=== PATIENT | male | born 1945 | race Caucasian/White ===

== ENCOUNTER 2021-04-27 01:33 | Emergency (ER) | payer OTHER ==
[~2021-04-27] VITALS: Ht 190.5 cm; Wt 95.3 kg
[~2021-04-27 01:33] MED LIST: ARICEPT10 MG GT; BUSPAR 5MG TABLE5 MG GT; COGENTIN 2MG TAB2 MG GT; DICLOFENAC SOD100 GM TP; ENULOSE10 GM/15 M GT; FLONASE 0.05% N16 GM; HEALTHYLAX17 GM GT; METOPROLOL SUCC25 MG GT; NORVASC 5 MG TAB5 MG GT; PAXIL40 MG GT; PLAVIX 75 MG TA75 MG GT; PRAVACHOL40 MG GT; PROSCAR5 MG GT; SEROQUEL100 MG GT; SEROQUEL50 MG GT; TYLENOL 500 MG500 MG GT; VIBRAMYCIN100 MG PO; ZESTRIL40 MG GT
[2021-04-27 02:09] LABS: HEMOGLOBIN 15.2 gm/dl (14.0-17.5); RED BLOOD COUNT 5.15 M/UL (4.20-5.50); WHITE BLOOD COUNT 17.3 K/UL (4.5-11.0)
[2021-04-27 02:29] LABS: BUN/CREATININE RATIO 28 (0-10)
== END 2021-04-27 09:28 | disposition short-term general hospital (02) ==
LOC: ER1 01:33
PROVIDERS: Physician Assistant
DX: K92.2 Gastrointestinal hemorrhage, unspecified (principal); J18.9 Pneumonia, unspecified organism; I10 Essential (primary) hypertension; Z20.822 Contact with and (suspected) exposure to COVID-19; Z95.1 Presence of aortocoronary bypass graft; E78.5 Hyperlipidemia, unspecified
CPT/HCPCS: 71045; 80053; 82272; 82550; 82553; 83605; 83690; 83874; 83880; 84484; 85025; 85610; 85730; 87040; 96374; 96375; 96376; 99285; C9113; J2405; J2543; J3370; J7030; Q9967; U0002